=== PATIENT | female | born 1995 | race Caucasian/White ===

== ENCOUNTER 2017-05-30 17:31 | Emergency (ER) | payer OTHER ==
--- NOTE | 2017-05-30 17:43 | EDPHY ---
H & P HPI/ROS: HPI CHIEF COMPLAINT: Dysuria, suprapubic pain sharp stabbing HISTORY OF PRESENT ILLNESS: Patient is a 21-year-old female, she is otherwise healthy does have a history of depression allergies, she presents emergency sudden-onset suprapubic sharp stabbing pain. Additionally reports dysuria or pain when she urinates. It hurts after she stops urinating burning sensation. Denies back pain. Denies nausea vomiting denies fever. Denies chest pain or shortness of breath. mild right lower quadrant pain. Pain is located 6/10 suprapubic region. She denies being . She states her last menstrual period was 2 weeks ago. She does take control. Denies any vaginal discharge. Past Medical History: Depression, seasonal allergies Past Surgical History: Denies recent surgical history Social History: Denies daily use drugs alcohol tobacco products Family History: Noncontributory ROS REVIEW OF SYSTEMS: A comprehensive 10 point review of systems is otherwise negative aside from elements mentioned in the history of present illness. Exam Constitutional appears well nontoxic no acute distress, triage nursing summary reviewed, vital signs reviewed, awake/alert. Eyes normal conjunctivae and sclera, EOMI, PERRLA. HENT normal inspection, atraumatic, moist mucus membranes, no epistaxis, neck supple/ no meningismus, no raccoon eyes. Respiratory clear to auscultation bilaterally, normal breath sounds, no respiratory distress, no wheezing. Cardiovascular rate normal, regular rhythm, no murmur, no edema, distal pulses normal. Gastrointestinal mild tender palpation suprapubic, mild right lower quadrant pain,, no rebound, no guarding, normal bowel sounds, no distension, no pulsatile mass. Genitourinary no CVA tenderness. Musculoskeletal no midline vertebral tenderness, full range of motion, no calf swelling, no tenderness of extremities, no meningismus, good pulses, neurovascularly intact. Skin pink, warm, & dry, no rash, skin atraumatic. Neurologic awake, alert and oriented x 3, AAOx3, moves all 4 extremities equally, motor intact, sensory intact, CN II-XII intact, normal cerebellar, normal vision, normal speech. Psychiatric normal mood/affect. Heme/Lymph/Immune no lymphadenopathy. Differential Diagnosis: Includes but is not limited to in a particular order, cystitis, UTI, pyelonephritis, ectopic , , ovarian cysts, ruptured ovarian cyst, PID Medical Decision Making: Plan for this patient check urinalysis, check basic blood work, test, IV hydration and re-evaluate. Re-evaluation: Ultrasound called to me by Dr. Valencia. Negative for acute disease process not unexplained pelvic pain. Given this patient's white count and lower abdominal pain will proceed with CT scan abdomen pelvis with IV contrast rule out acute appendicitis. She does have some mild right lower quadrant pain could rule out a pelvic appendicitis. 2007: Patient CT scan abdomen pelvis with IV contrast does not show any acute inflammatory process. Large amount of structures under pelvis region. No inflammatory changes. Dr. Valencia can visualize most of her appendix or parts of it. No inflammatory changes. I discussed the patient CT scan results with her. She understands return precautions. Given that we cannot visualize her in total appendix. I have given strict return precautions understands return emergency room develops worsening abdominal pain fever vomiting. Given the bacteria urine I will treated for UTI Keflex provided peridium as well as Diflucan as she states she gets yeast infection after her antibiotic. Return precautions discussed with her she understands return emergency room immediately if he develops worsening abdominal pain fever vomiting. Source: Patient - Medical/Surgical History Hx Asthma: No Hx Chronic Respiratory Disease: No Hx Diabetes: No Hx Cardiac Disease: No Hx Renal Disease: No Hx Cirrhosis: No Hx Alcoholism: No Hx HIV/AIDS: No Hx Splenectomy or Spleen Trauma: No Other PMH: Asthma/Depression/Anxiety Constitutional: Initial Vital Signs Temperature (C) 36.9 C 05/30/17 17:41 Heart Rate 97 05/30/17 17:41 Respiratory Rate 18 05/30/17 17:41 Blood Pressure 126/82 H 05/30/17 17:41 O2 Sat (%) 96 05/30/17 17:41 O2 Delivery Mode Room Air Allergies/Adverse Reactions: No Known Allergies Allergy (Verified 05/30/17 17:39) Home Medications: Medication Instructions Recorded Norethindrone AC-Eth Estradiol 1 each PO 12/28/12 [Loestrin] PARoxetine HCL [Paxil 10mg (RX)] 10 mg PO DAILY 12/28/12 Azithromycin [Zithromax] 250 mg PO DAILY #6 tab 05/15/13 HYOSCYAMINE SULFATE [LEVSIN-SL] 0.125 - 0.25 mg SL Q6 PRN #20 05/15/13 tab.subl Cephalexin [Keflex] 500 mg PO Q6H #28 cap 05/30/17 Flonase Nasal [place] 05/30/17 Fluconazole [Diflucan (*)] 100 mg PO DAILY #5 tab 05/30/17 Montelukast Sodium 05/30/17 Phenazopyridine HCl [Pyridium] 200 mg PO TID #15 tab 05/30/17 Medical Decision Making - Diagnostics Imaging Results: Imaging Impressions Pelvic/Renal Ultrasound 05/30/17 18:34 Impression: Normal ultrasound pelvis. Findings and recommendations discussed with Emergency Department physician, Carlos Giraldo MD at 19:13 hour, 05/30/2017. Final report concurs with initial preliminary interpretation. - Data Points Laboratory Results: Laboratory Results 05/30/17 18:03 05/30/17 18:03 05/30/17 05/30/17 05/30/17 18:03 18:03 18:03 WBC 14.33 10^3/uL H 10^3/uL (3.80-9.50) RBC 4.71 10^6/uL 10^6/uL (4.18-5.33) Hgb 14.0 g/dL g/dL (12.6-16.3) Hct 40.1 % % (38.0-47.0) MCV 85.1 fL fL (81.5-99.8) MCH 29.7 pg pg (27.9-34.1) MCHC 34.9 g/dL g/dL (32.4-36.7) RDW 12.0 % % (11.5-15.2) Plt Count 367 10^3/uL 10^3/uL (150-400) MPV 8.2 fL L fL (8.7-11.7) Neut % (Auto) 57.8 % % (39.3-74.2) Lymph % (Auto) 32.7 % % (15.0-45.0) [place] % (Auto) 7.3 % % (4.5-13.0) Eos % (Auto) 1.4 % % (0.6-7.6) Baso % (Auto) 0.3 % % (0.3-1.7) Nucleat RBC Rel Count 0.0 % % (0.0-0.2) Absolute Neuts (auto) 8.29 10^3/uL H 10^3/uL (1.70-6.50) Absolute Lymphs (auto) 4.68 10^3/uL H 10^3/uL (1.00-3.00) Absolute Monos (auto) 1.05 10^3/uL H 10^3/uL (0.30-0.80) Absolute Eos (auto) 0.20 10^3/uL 10^3/uL (0.03-0.40) Absolute Basos (auto) 0.04 10^3/uL 10^3/uL (0.02-0.10) Absolute Nucleated RBC 0.00 10^3/uL 10^3/uL (0-0.01) Immature Gran % 0.5 % % (0.0-1.1) Immature Gran # 0.07 10^3/uL 10^3/uL (0.00-0.10) Sodium 139 mEq/L mEq/L (135-145) Potassium 3.8 mEq/L mEq/L (3.5-5.2) Chloride 100 mEq/L mEq/L (97-110) Carbon Dioxide 23 mEq/l mEq/l (22-31) Anion Gap 16 mEq/L mEq/L (8-16) BUN 8 mg/dL mg/dL (7-23) Creatinine 0.6 mg/dL mg/dL (0.6-1.0) Estimated GFR > 60 Glucose 89 mg/dL mg/dL (70-100) Calcium 9.4 mg/dL mg/dL (8.5-10.4) Beta HCG, Qual NEGATIVE Urine Color Urine Appearance Urine pH Ur Specific [place] Urine Protein Urine Ketones Urine Blood Urine Nitrate Urine Bilirubin Urine Urobilinogen Ur Leukocyte Esterase Urine RBC Urine WBC Ur Epithelial Cells Urine Bacteria Urine Glucose 05/30/17 17:45 WBC RBC Hgb Hct MCV MCH MCHC RDW Plt Count MPV Neut % (Auto) Lymph % (Auto) [place] % (Auto) Eos % (Auto) Baso % (Auto) Nucleat RBC Rel Count Absolute Neuts (auto) Absolute Lymphs (auto) Absolute Monos (auto) Absolute Eos (auto) Absolute Basos (auto) Absolute Nucleated RBC Immature Gran % Immature Gran # Sodium Potassium Chloride Carbon Dioxide Anion Gap BUN Creatinine Estimated GFR Glucose Calcium Beta HCG, Qual Urine Color YELLOW Urine Appearance CLEAR Urine pH 6.5 (5.0-7.5) Ur Specific [place] 1.010 (1.002-1.030) Urine Protein NEGATIVE (NEGATIVE) Urine Ketones NEGATIVE (NEGATIVE) Urine Blood 1+ H (NEGATIVE) Urine Nitrate NEGATIVE (NEGATIVE) Urine Bilirubin NEGATIVE (NEGATIVE) Urine Urobilinogen 0.2 EU EU (0.2-1.0) Ur Leukocyte Esterase NEGATIVE (NEGATIVE) Urine RBC 1-3 /hpf /hpf (0-3) Urine WBC 1-3 /hpf /hpf (0-3) Ur Epithelial Cells TRACE /lpf /lpf (NONE-1+) Urine Bacteria TRACE /hpf H /hpf (NONE SEEN) Urine Glucose NEGATIVE (NEGATIVE) Medications Given: Discontinued Medications Sodium Chloride (Ns) 1,000 mls @ 0 mls/hr IV ONCE ONE PRN Reason: Wide Open Stop: 05/30/17 17:47 Last Admin: 05/30/17 18:04 Dose: 1,000 mls Departure - Departure Disposition: Home, Routine, Self-Care Clinical Impression: UTI (urinary tract infection) Qualifiers: Urinary tract infection type: acute cystitis Hematuria presence: with hematuria Qualified Code(s): N30.01 - Acute cystitis with hematuria Abdominal pain Qualifiers: Abdominal location: unspecified location Qualified Code(s): R10.9 - Unspecified abdominal pain Condition: Good Instructions: Urinary Tract Infection in Women (ED), Acute Abdominal Pain (ED) Additional Instructions: 1. Drink lots of fluids stay well-hydrated. 2. Antibiotic as prescribed. 3. Return to the emergency room if develops worsening abdominal pain fever vomiting. Referrals: Kathya Valle MD [Primary Care Provider] - As per Instructions Prescriptions: Cephalexin [Keflex] 500 mg PO Q6H #28 cap Fluconazole [Diflucan (*)] 100 mg PO DAILY #5 tab Phenazopyridine HCl [Pyridium] 200 mg PO TID #15 tab
[2017-05-30 17:44] VITALS: RESP 18; TEMP 98.4
[2017-05-30] MEDS ORDERED: NS 1,000 ML IV ONE (17:46)
[2017-05-30 18:14] LABS: PLATELET COUNT 367 10^3/uL (150-400)
[2017-05-30] MEDS ORDERED: IOPAMIDOL (ISOVUE-300) 100 ML BTL ONE (19:31)
[2017-05-30 20:22] VITALS: BP 124/62; PULSE 18; O2SAT 98
== END 2017-05-30 20:20 | disposition home or self-care (01) ==
LOC: CED 17:31
DX: N30.01 Acute cystitis with hematuria (principal); B96.89 Other specified bacterial agents as the cause of diseases classified elsewhere
CPT/HCPCS: 74177-PO; 76856-PO; 80048-PO; 81003-PO; 81015-PO; 84703-PO; 85025-PO; Q9967